=== PATIENT | male | born 1950 | race Two or more races ===

== ENCOUNTER 2017-09-09 06:58 | Outpatient (CLI) | payer OTHER | END 2017-09-09 08:35 | disposition home or self-care (01) | LOC: SONOGRAMA 06:58 | DX: I12.9 Hypertensive chronic kidney disease with stage 1 through stage 4 chronic kidney disease, or unspecified chronic kidney disease (principal); N18.3 Chronic kidney disease, stage 3 (moderate); N04.2 Nephrotic syndrome with diffuse membranous glomerulonephritis; E78.2 Mixed hyperlipidemia; E04.1 Nontoxic single thyroid nodule ==